=== PATIENT | male | born 1975 | race Caucasian/White ===

== ENCOUNTER → 2020-04-01 10:59 | Outpatient (CLI) | payer SELFPAY ==
[2020-04-01 12:35] LABS: Alanine Aminotransferase 44 IU/L (<50); Albumin 4.5 g/dL (3.5-5.0); Albumin Globulin Ratio 1.5 (1.0-2.8); Alkaline Phosphatase 80 U/L (38-126); Aspartate Aminotransferase 36 IU/L (17-59); BUN Creatinine Ratio 28.1 (6-22); Bilirubin Total 0.6 mg/dL (0.2-1.3); Blood Urea Nitrogen 27 mg/dL (9-20); Calcium 9.4 mg/dL (8.4-10.2); Carbon Dioxide 25 mmol/L (22-32); Chloride 106 mmol/L (98-107); Estimated Glomerular Filt Rate > 60.0 mL/min (>60); Globulin 3.1 g/dL (1.7-4.1); Glucose 97 mg/dL (70-100); HEMOLYSIS < 15 (0-50); Potassium 4.6 mmol/L (3.4-5.1); Sodium 140 mmol/L (137-145); Total Protein 7.6 g/dL (6.3-8.2)
[2020-04-01 12:52] LABS: Free T4, Direct Thyroxine 0.95 ng/dL (0.78-2.19)
[2020-04-01 13:06] LABS: Thyroid Stimulating Hormone 1.53 uIU/mL (0.47-4.68)
[2020-04-02 04:44] LABS: Valproic Acid (Depakene) Total 52 ug/mL (50-100)
== END ==
PROVIDERS: Referring Provider Psychiatry & Neurology Psychiatry; Visit Provider Psychiatry & Neurology Psychiatry
DX: F31.81 Bipolar II disorder (principal)
CPT/HCPCS: 36415; 80053; 80164; 84439; 84443

== ENCOUNTER → 2020-05-07 11:27 | Outpatient (CLI) | payer SELFPAY ==
[2020-05-08 06:10] LABS: Valproic Acid (Depakene) Total 86 ug/mL (50-100)
== END ==
PROVIDERS: Referring Provider Psychiatry & Neurology Psychiatry; Visit Provider Psychiatry & Neurology Psychiatry
DX: F31.81 Bipolar II disorder (principal)
CPT/HCPCS: 36415; 80164

== ENCOUNTER → 2021-02-03 11:54 | Outpatient (CLI) | payer SELFPAY ==
[2021-02-03 13:28] LABS: Alanine Aminotransferase 38 IU/L (<50); Albumin 4.4 g/dL (3.5-5.0); Albumin Globulin Ratio 1.3 (1.0-2.8); Alkaline Phosphatase 88 U/L (38-126); Aspartate Aminotransferase 30 IU/L (17-59); BUN Creatinine Ratio 26.1 (6-22); Bilirubin Total 0.4 mg/dL (0.2-1.3); Blood Urea Nitrogen 24 mg/dL (9-20); Calcium 9.6 mg/dL (8.4-10.2); Carbon Dioxide 25 mmol/L (22-32); Chloride 105 mmol/L (98-107); Estimated Glomerular Filt Rate > 60.0 mL/min (>60); Globulin 3.3 g/dL (1.7-4.1); Glucose 104 mg/dL (70-100); HEMOLYSIS < 15 (0-50); Potassium 4.5 mmol/L (3.4-5.1); Sodium 140 mmol/L (137-145); Total Protein 7.7 g/dL (6.3-8.2)
[2021-02-04 05:22] LABS: Valproic Acid (Depakene) Total 54 ug/mL (50-100)
== END ==
LOC: LAB 11:56
PROVIDERS: Referring Provider Psychiatry & Neurology Psychiatry; Visit Provider Psychiatry & Neurology Psychiatry
DX: F31.81 Bipolar II disorder (principal)
CPT/HCPCS: 36415; 80053; 80164

== ENCOUNTER → 2021-10-21 17:30 | Outpatient (CLI) | payer OTHER, MEDICAID, SELFPAY ==
[2021-10-22 04:28] LABS: Valproic Acid (Depakene) Total 57 ug/mL (50-100)
== END ==
PROVIDERS: Referring Provider Psychiatry & Neurology Psychiatry; Visit Provider Psychiatry & Neurology Psychiatry
DX: F31.81 Bipolar II disorder (principal)
CPT/HCPCS: 36415; 80164